=== PATIENT | female | born 1970 | race Caucasian/White ===

== ENCOUNTER 2020-06-14 15:20 | Inpatient (IN) | payer BC, OTHER ==
[~2020-06-14] VITALS: Ht 154.9 cm; Wt 136.1 kg
[~2020-06-14 15:20] MED LIST: APRISO0.375 GM PO; BACTRIM DS TAB1 EACH PO; BACTROBAN NASAL1 G1 TOP; BASAGLAR K100 UNIT/1 SC; CELEBREX200 MG PO; CLEOCIN HCL300 MG PO; CYCLOBENZAPRINE5 MG PO; GLIPIZIDE5 MG PO; GLUCOPHAGE500 MG PO; MOBIC15 MG PO; OXYBUTYNIN CHLO15 MG PO; PRINIVIL20 MG PO; SYNTHROID25 MCG PO; ZOCOR20 MG PO; ZOLOFT100 MG PO
[2020-06-14 20:06] LABS: HEMOGLOBIN 10.3 gm/dl (12.3-15.3); RED BLOOD COUNT 4.09 M/UL (4.00-5.10); WHITE BLOOD COUNT 13.8 K/UL (4.5-11.0)
[2020-06-14 20:25] LABS: BUN/CREATININE RATIO 24 (0-10)
[2020-06-15 03:02] LABS: HEMOGLOBIN 9.3 gm/dl (12.3-15.3); RED BLOOD COUNT 3.72 M/UL (4.00-5.10); WHITE BLOOD COUNT 13.3 K/UL (4.5-11.0)
[2020-06-15 03:28] LABS: BUN/CREATININE RATIO 34 (0-10)
[2020-06-15] MEDS ORDERED: PREMARIN VAG CR30 GM TOP (07:29)
--- NOTE | 2020-06-15 11:00 | NUR ---
NO CHANGES FROM PREVIOUS ASSESSMENT
[2020-06-15] MEDS ORDERED: [UNRECOGNIZED DRUG - OTHER] SC (11:47)
--- NOTE | 2020-06-15 18:00 | NUR ---
PT TRANSFERRED TO MED SURG PER MD ORDER, VSS AT TIME OF TRANSFER
[2020-06-15] MEDS ORDERED: ADMELOG SO100 UNIT/1 SC (23:00)
[2020-06-16 03:02] LABS: HEMOGLOBIN 8.5 gm/dl (12.3-15.3); RED BLOOD COUNT 3.46 M/UL (4.00-5.10); WHITE BLOOD COUNT 11.2 K/UL (4.5-11.0)
[2020-06-16 03:21] LABS: BUN/CREATININE RATIO 29 (0-10)
[2020-06-17 04:12] LABS: HEMOGLOBIN 9.3 gm/dl (12.3-15.3); RED BLOOD COUNT 3.77 M/UL (4.00-5.10)
[2020-06-17 04:38] LABS: BUN/CREATININE RATIO 29 (0-10)
[2020-06-17] MEDS ORDERED: HYDROCODON-ACE1 EAC4 PO (09:17)
[2020-06-17] MEDS ORDERED: LEVOFLOXACIN750 MG PO (12:36)
== END 2020-06-17 17:44 | disposition home or self-care (01) | DRG 854 ==
LOC: ER1 15:20 → CDU 18:48 → PROG CARE 18:48 → MED SURG 4 06-15 18:13
PROVIDERS: Internal Medicine; Physician Assistant; Surgery; ADMIT Internal Medicine
PROC: 0J9C0ZZ Drainage of Pelvic Region Subcutaneous Tissue and Fascia, Open Approach (ICD-10-PCS; principal; 2020-06-14 20:44)
DX: A40.1 Sepsis due to streptococcus, group B (principal); L02.416 Cutaneous abscess of left lower limb; E66.2 Morbid (severe) obesity with alveolar hypoventilation; I10 Essential (primary) hypertension; E78.5 Hyperlipidemia, unspecified; E03.9 Hypothyroidism, unspecified; F41.9 Anxiety disorder, unspecified; F32.9 Major depressive disorder, single episode, unspecified; E11.65 Type 2 diabetes mellitus with hyperglycemia; E88.09 Other disorders of plasma-protein metabolism, not elsewhere classified; M25.519 Pain in unspecified shoulder; I11.9 Hypertensive heart disease without heart failure; Z79.4 Long term (current) use of insulin; Z88.0 Allergy status to penicillin; Z68.30 Body mass index [BMI] 30.0-30.9, adult
CPT/HCPCS: 36415; 72193; 73701; 80048; 80053; 80202; 81001; 82550; 82553; 82962; 83036; 83605; 83874; 84484; 85025; 85027; 86140; 87040; 87070; 87077; 87086; 87186; 87205; 93005; 99284; C9113; J0360; J1100; J1650; J2001; J2185; J2250; J2270; J2405; J2704; J3010; J3370; J7070; J7120; Q9967; U0002